=== PATIENT | female | born 1990 | race Caucasian/White ===

== ENCOUNTER 2023-09-30 07:34 | Inpatient (IN) ==
--- OUTSIDE RECORDS SUMMARY | 2023-09-30 07:51 | External Medical Summary | Summary of Care ---
Author Name Unknown Organization [facility] Address [address] [place] [address] Phone [phone] Care Team Providers Care Supervisor Color Paste Mixing Name Role Phone Faisal Otto MD Primary Care Provider + Reason for Visit * Reason Comments Return Visit Encounter Details Date Type Department Care Team (Late st Contact Info) Description 09/22/2023 8:45 AM EST Office Visit Gynecology/Obstetric [facility] [address] [facility] [place] [address] Divine Leon MD [address] [facility] [place] [phone] 39 weeks gestation of *; Hypothyroidism affecting in third trimester; Encounter for supervision of normal first in third trimester; Anxiety during ; History of respiratory syncytial virus (RSV) vaccination Allergies Active Allergy Reactions Criticality Noted Date Comments Cat Dander Other (Please comment) 11/29/2015 Congestion Dog Dander Other (Please comment) 11/29/2015 congestion Ragweed 11/29/2015 grass congestion documented as of this encounter (statuses as of 09/22/2023) Medications Medication Sig Dispensed Refills Start Date End Date Status 28-0.8 MG Oral Tablet Take by mouth. 0 Active Fluticasone Propionate 50 MCG/ACT Nasal Suspension (Flonase) ADMINISTER 2 SPRAYS INTO NOSTRIL IN THE MORNING. NEED ANNUAL OV FOR FURTHER REFILLS 48 mL 0 10/07/2022 10/07/2023 Active Levothyroxine Sodium 50 MCG Oral Tablet (Levoxyl) TAKE 1 TABLET BY MOUTH DAILY AT LEAST 30 MINUTES PRIOR TO FIRST MEAL OF THE DAY OR OTHER MEDICATIONS 90 Tablet 0 07/14/2023 07/13/2024 Active Iron 325 (65 Fe) MG Oral Tablet Take 1 Tablet by mouth once. 0 Active Sertraline HCl 50 MG Oral Tablet (Zoloft) TAKE ONE TABLET BY MOUTH EVERY MORNING 90 Tablet 3 09/22/2023 09/21/2024 Active documented as of this encounter (statuses as of 09/22/2023) Active Problems Problem Noted Date Diagnosed Date History of respiratory syncytial virus (RSV) vac cination 08/26/2023 Overview: Received 08/2023 Supervision of normal first 02/11/2023 Anxiety during 02/11/2023 Overview: zoloft Hypothyroidism affecting 02/11/2023 Overview: TSH Results: Lab Results Component Value Date/Time TSH - [facility] 1.22 07/01/2023 02:28 PM TSH - [facility] 1.39 06/10/2023 01:48 PM TSH - [facility] 1.68 05/13/2023 01:40 PM TSH - [facility] 1.48 09/28/2019 01:24 PM TSH - [facility] 1.44 04/14/2018 04:47 PM TSH - [facility] 1.75 12/02/2016 08:08 AM GAUTAM (generalized anxiety disorder) 12/25/2016 Hypothyroidism 12/04/2015 Screening for lipid disorders 11/29/2015 Allergic rhinitis Overview: shots in past Estimated Date of Delivery Comme nts Yes 09/23/2023 Based on Ultraso und documented as of this encounter (statuses as of 09/22/2023) Resolved Problems Problem Noted Date Diagnosed Date Resolved Date Less than 8 weeks gestation of 01/28/2023 02/11/2023 Oral contraceptive use 10/19/201902/11 PTSD (post-traumatic stress disorder) 12/25/2016 04/14/2018 Moderate single current epis ode of major depressive disorder 12/25/2016 04/14/2018 Oligomenorrhea 12/04/2015 02/11/2023 Elevated prolactin level 12/04/2015 History of varicella 11/29/2015 019 documented as of this encounter (statuses as of 09/22/2023) Immunizations Name Administration Dates Next Due COVID-19 mRNA, LNP-s, No Pre serve, 2-Dose Series ([employer]) 06/12/2021,09/15/2020,08/25/2020 H1N1 2009 Influenza, Intranasal 07/03/2009 HPV Vaccine, 4-Valent 04/25/2009,01/18/2009,11/05 Hepatitis B, 0-19 yrs 12/25/1994,05/30/1994,04/08 MMR - Measles/Mumps/Rubella Vaccine 04/14/1998,1 1990 Meningococcal Conjugate Vaccine 01/13/2006 PPD 05/21/2015,10/06/2012,09/29/2012 Seasonal Influenza Virus Vac cine, Unspecified Formulation 06/16/2019 Seasonal Influenza, PF, 6 M & above, IM , (FluLaval or Fluzone) 06/01/2023,06/27/2022 Seasonal Influenza, Quadriva lent, No Preserve, IM 06/05/2021,05/31/2020,06/16/2019,06/24 Seasonal Influenza, Split, I IV3, With Preserve, Inj 06/12/2017,06/18/2016,04/07/2015,04/26 TDAP (age 10 and older)(Boostrix) 07/01/2023, Varicella Vaccine (Chicken Pox) 01/09/1994 documented as of this encounter Social History Tobacco Use Types Packs/Day Years Used Date Smoking Tobacco: Never Smokeless Tobacco: Never Alcohol Use Standard Drinks/Week Comments Not Currently 0 (1 standard drink = 0.6 oz pur e alcohol) no binge AUDIT-C Answer Date Recorded Frequency of Alcohol Consumption Monthly or less 09/28/2019 Average Number of Drinks Not on file 020 Frequency of Binge Drinking Not on file 09/08 PHQ-2 Answer Date Recorded PHQ-2 Score 0 09/28/2019 Hunger Vital Sign Answer Date Recorded Within the past 12 months, y ou worried that your food would run out before you got the money to buy more. Never true 01/28/20 Within the past 12 months, t he food you bought just didn't last and you didn't have money to get more. Never true 01/27/2023 [place] Depression Scale Answer Date Recorded [place] Depression Scale Total 0 08/12/2023 The thought of harming myself has occurred to me . Never 08/12/2023 Estimated Date of Delivery Comme nts Yes 09/23/2023 Based on Ultraso und Sex and Gender Information Value Date Recorded Sex Assigned at Female 01/27/2023 1:33 PM EDT Gender Identity Female 01/27/2023 1:33 PM EDT Sexual Orientation Straight 01/27/2023 1: 33 PM EDT Job Start Date Occupation Industry Not on file Not on file Not on file documented as of this encounter Last Filed Vital Signs Vital Sign Reading Time Taken Comments Blood Pressure 118/68 09/22/2023 8:39 AM EST Pulse - - Temperature - - Respiratory Rate - - Oxygen Saturation - - Inhaled Oxygen Concentration - - Weight 70.3 kg (155 lb) 09/22/2023 8:39 AM EST Height 162.6 cm (5' 4") 09/22/2023 8:39 AM EST Body Mass Index 26.61 09/22/2023 8:39 AM EST documented in this encounter Progress Notes * Divine Leon MD - 09/22/2023 8:45 AM EST Patient is 33 year old at 39 6/7 weeks who presents for DORA visit Denies leaking of fluid, or vaginal bleeding. Noted good movement. Ctx spaced out. Was on LD Thursday Denies headache, blurry vision, RUQ or epigastric pain. Problem list reviewed LMP 12/12/2022 (Approximate) FH: 39 FHT: 151 Cx: 2-3/50/-3, membrane sweep done with patient consent Mule Packer Documentation Patient offered tankage grinder and accepted. Name of tankage grinder: Erasmo Jha LPN Plan: Labor and preeclampsia warnings reviewed RTC 1 weeks V Carolyn NORMAN PhD * Michaelle Park LPN - 09/22/2023 8:40 AM EST 39w6d Was at L+D Monday 09/18 for consistent ctx, was dehydrated and sent home. documented in this encounter Plan of Treatment Health Maintenance Due Date Last Done Comments Depression Screening 09/28/2020 09/28/2019 COVID-19 Vaccine ( season) 2023 06/12/2021, 09/15/2020, 08/25/2020 TSH 08/12/2024 08/12/2023, 06/08, 06/10/2023, Additional history exists Pap Smear 02/11/2026 02/11/2023, 10/08, 10/19/2019, Additional history exists Cervical Cancer Screening 02/12/2028 HPV/Co-Test 02/12/2028 02/11/2023 DTaP,Tdap,and Td Vaccines (3 - Td or Tdap) 07/01/2033 07/01/2023, 04/02/2014 Hepatitis B Completed 12/25/1994, 05/09, 04/29/1994 MENINGOCOCCAL (MENACTRA/MENVEO) Aged Out 01/13/2006 No longer eligible based on patient's age to complete this topic GARDASIL-HPV IMMUNIZATION SERIES Completed 04/25/2009, 01/18/2009, 11/16/2008 Influenza Vaccine (FLU shot) Completed , 06/27/2022, 06/05/2021, Additional history exists Pneumococcal Vaccine: Pediatrics (0 to 5 Years) and At-Risk Patients (6 to 64 Years) Aged Out No longer eligible based on patient's age to complete this topic documented as of this encounter Medical Devices Not on filedocumented as of this encounter Visit Diagnoses Diagnosis 39 weeks gestation of - Primary state, incidental Hypothyroidism affecting in third trimester Encounter for supervision of normal first in third trimester Supervision of normal first Anxiety during History of respiratory syncytial virus (RSV) vaccination documented in this encounter Care Teams Supervisor Color Paste Mixing Relationship Specialty Start Date End Date Faisal Otto MD [address] [place] [address] PCP - General Family Medicine 11/02/18 documented as of this encounter
--- OUTSIDE RECORDS SUMMARY | 2023-09-30 07:51 | External Medical Summary | Summary of Care ---
Author Name Unknown Organization [facility] Address [address] [place] [address] Phone [phone] Care Team Providers Care District Gauger Name Role Phone Faisal Otto MD Primary Care Provider + Reason for Visit * Reason Onset Date Comments Appointment 09/25/2023 Encounter Details Date Type Department Care Team (Late st Contact Info) Description 09/25/2023 Telephone Gynecology/Obstetrics [facility] [address] [facility] [place] [address] ADDRESS AVAILABLE Appointment Allergies Active Allergy Reactions Criticality Noted Date Comments Cat Dander Other (Please comment) 11/29/2015 Congestion Dog Dander Other (Please comment) 11/29/2015 congestion Ragweed 11/29/2015 grass congestion documented as of this encounter (statuses as of 09/25/2023) Medications Medication Sig Dispensed Refills Start Date [...] as of this encounter (statuses as of 09/25/2023) Active Problems Problem Noted Date Diagnosed Date [...] as of this encounter (statuses as of 09/25/2023) Resolved Problems Problem Noted Date Diagnosed Date Resolved Date Less than 8 weeks gestation of 01/28/2023 02/11/2023 Oral contraceptive use 10/19/201902/11 PTSD (post-traumatic stress disorder) 12/25/2016 04/14/2018 Moderate single current epis ode of major depressive disorder 12/25/2016 04/14/2018 Oligomenorrhea 12/04/2015 02/11/2023 Elevated prolactin level 12/04/2015 History of varicella 11/29/2015 019 documented as of this encounter (statuses as of 09/25/2023) Immunizations Name Administration Dates Next Due COVID-19 mRNA, LNP-s, No Pre serve, 2-Dose Series ([employer]) 06/12/2021,09/15/2020,08/25/2020 H1N1 2009 Influenza, Intranasal 07/03/2009 HPV Vaccine, 4-Valent 04/25/2009,01/18/2009,11/05 Hepatitis B, 0-19 yrs 12/25/1994,05/30/1994, MMR - Measles/Mumps/Rubella Vaccine 04/14/1998,1 1990 Meningococcal [...] money to buy more. Never true 01/28/20 23 Within the past 12 months, t he food you bought just didn't last and you didn't have money to get more. Never true 01/27/2023 [place] Depression Scale Answer Date Recorded [place] Depression Scale Total 0 08/12/2023 The thought [...] on file documented as of this encounter Plan of Treatment Upcoming Encounters Date Type Department Care Team (Late st Contact Info) Description 09/28/2023 2:30 PM EST Office Visit Gynecology/Obstetrics [facility] [address] [place] [address] Candie Santana PA-C [address] [place] [address] Health Maintenance Due Date Last Done Comments [...] Not on filedocumented as of this encounter Care Teams District Gauger Relationship Specialty Start Date End Date Faisal Otto MD [address] [place] [address] PCP - General Family Medicine 11/02/18 documented as of this encounter
--- OUTSIDE RECORDS SUMMARY | 2023-09-30 07:51 | External Medical Summary | Summary of Care ---
Author Name Unknown Organization [facility] Address [address] [place] [address] Phone [phone] Care Team Providers Care Interventional Radiologist Name Role Phone Faisal Otto MD Primary Care Provider + Reason for Visit * Reason Comments Medication Refill Encounter Details Date Type Department Care Team (Late st Contact Info) Description 09/21/[address] [facility] [address] [facility] [place] [address] Monika Fraser CRNP [address] [place] [address] Allergies Active Allergy Reactions Criticality Noted Date [...] MORNING 90 Tablet 3 09/22/2023 09/21/2024 Active Sertraline HCl 50 MG Oral Tablet (Zoloft) TAKE ONE TABLET BY MOUTH EVERY MORNING 90 Tablet 3 10/08/2022 09/21/2023 Discontinue d(Refill) documented as of this encounter (statuses as [...] mRNA, LNP-s, No Pre serve, 2-Dose Series ([employer]) 06/12/2021,09/15/2020,08/25/2020 H1N1 2009 Influenza, Intranasal 07/03/2009 HPV [...] money to get more. Never true 01/27/2023 [place] Depression Scale Answer Date Recorded [place] Depression Scale Total 0 08/12/2023 The thought [...] on file documented as of this encounter Miscellaneous Notes * Telephone Encounter - Monika Fraser CRNP - 09/22/2023 7:52 AM EST Signed Prescriptions: Disp Refills Sertraline HCl 50 MG Oral Tablet (Zoloft) 90 Tab*3 Sig: TAKE ONE TABLET BY MOUTH EVERY MORNING Authorizing Provider: MONIKA FRASER * Telephone Encounter - Carol Corley RP - 09/22/2023 7:03 AM ESTPending Prescriptions: Disp Refills Sertraline HCl 50 MG Oral Tablet (Zoloft) 90 Tab*3 Sig: TAKE ONE TABLET BY MOUTH EVERY MORNING * Telephone Encounter - Carol Corley [facility] - 09/22/2023 7:01 AM EST Unable to authorize medication refills for pended medication(s) at this time. Part of the protocol criteria used for refill authorization was not satisfied. Patient is currently . Please approve if appropriate. Thank You, Carol Corley [facility] Clinical Pharmacist [facility] Services ([facility]) (formerly Telepharmacy) [phone] 09/22/2023, 7:02 AM documented in this encounter Plan of Treatment Upcoming Encounters Date Type Department Care Team (Late st Contact Info) Description 09/22/2023 8:45 AM EST Office Visit Gynecology/Obstetrics [facility] [address] [facility] [place] [address] Divine Leon MD [address] [place] [address] [place] [address] Health Maintenance Due Date Last Done Comments [...] filedocumented as of this encounter Care Teams Interventional Radiologist Relationship Specialty Start Date End Date Faisal Otto MD [address] [facility] [place] [address] PCP - General Family Medicine 11/02/18 documented as of this encounter
--- OUTSIDE RECORDS SUMMARY | 2023-09-30 07:51 | External Medical Summary | Summary of Care ---
Author Name Unknown Organization [facility] Address [address] [place] [address] Phone [phone] Care Team Providers Care Rubber Factory Worker Name Role Phone Faisal Otto MD Primary Care Provider + Reason for Visit * Reason Comments Return Visit Encounter Details Date Type Department Care Team (Late st Contact Info) Description 09/28/2023 2:30 PM EST Office Visit Gynecology/Obstetric s [facility] [address] [place] [address] Candie Santana PA-C [address] [place] [address] Encounter for supervision of normal first in third trimester*; Anxiety during ; Hypothyroidism affecting in third trimester; History of respiratory syncytial virus (RSV) vaccination Allergies Active Allergy Reactions Criticality Noted Date Comments Cat Dander Other (Please comment) 11/29/2015 Congestion Dog Dander Other (Please comment) 11/29/2015 congestion Ragweed 11/29/2015 grass congestion documented as of this encounter (statuses as of 09/28/2023) Medications Medication Sig Dispensed Refills Start Date [...] as of this encounter (statuses as of 09/28/2023) Active Problems Problem Noted Date Diagnosed Date [...] as of this encounter (statuses as of 09/28/2023) Resolved Problems Problem Noted Date Diagnosed Date Resolved Date Less than 8 weeks gestation of 01/28/2023 02/11/2023 Oral contraceptive use 10/19/201902/11 PTSD (post-traumatic stress disorder) 12/25/2016 04/14/2018 Moderate single current epis ode of major depressive disorder 12/25/2016 04/14/2018 Oligomenorrhea 12/04/2015 02/11/2023 Elevated prolactin level 12/04/2015 History of varicella 11/29/2015 019 documented as of this encounter (statuses as of 09/28/2023) Immunizations Name Administration Dates Next Due COVID-19 mRNA, LNP-s, No Pre serve, 2-Dose Series ([employer]) 06/12/2021,09/15/2020,08/25/2020 H1N1 2009 Influenza, Intranasal 07/03/2009 HPV [...] the money to buy more. Never true 05/23/20 23 Within the past 12 months, t he food you bought just didn't last and you didn't have money to get more. Never true 01/27/2023 [place] Depression Scale Answer Date Recorded [place] Depression Scale Total 0 08/12/2023 The thought [...] Sign Reading Time Taken Comments Blood Pressure 114/72 09/28/2023 2:04 PM EST Pulse - - Temperature - - Respiratory Rate - - Oxygen Saturation - - Inhaled Oxygen Concentration - - Weight 70.8 kg (156 lb) 09/28/2023 2:04 PM EST Height 162.6 cm (5' 4") 09/28/2023 2:04 PM EST Body Mass Index 26.78 09/28/2023 2:04 PM EST documented in this encounter Progress Notes * Candie Santana PA-C - 09/28/2023 2:09 PM EST 40w5d Understandably disappointed that now past due date. Reports contractions at closest 15 minutes apart. Inconsistent. Had some more regular contractions last Thursday but then stopped. Denies bleeding, LOF. Pos FM. Desires cervical check. IOL scheduled 09/30/2023. Building Service Worker Documentation Provider requested low vision therapist. Name of low vision therapist: STUART Braswell Exam: 2-350/-3 RTC for visit Candie Santana PA-C * Michaelle Park LPN - 09/28/2023 2:06 PM EST 40w5d Would like cervical check. documented in this encounter Plan of Treatment [...] as of this encounter Visit Diagnoses Diagnosis Encounter for supervision of normal first in third trimester- Primary Supervision of normal first Anxiety during Hypothyroidism affecting in third trimester History of respiratory syncytial virus (RSV) vaccination documented in this encounter Care Teams Rubber Factory Worker Relationship Specialty Start Date End Date Faisal Otto MD [address] [place] [address] PCP - General Family Medicine 11/02/18 documented as of this encounter
--- OUTSIDE RECORDS SUMMARY | 2023-09-30 07:51 | External Medical Summary | Summary of Care ---
Author Name Unknown Organization [facility] Address [address] [place] [address] Phone [phone] Care Team Providers Care Rn International Name Role Phone Faisal Otto MD Primary Care Provider + Reason for Visit * Reason Comments Return Visit Encounter Details Date Type Department Care Team (Late st Contact Info) Description 09/22/2023 8:45 AM EST Office Visit Gynecology/Obstetric [facility] 132 [facility] [place] [address] Divine Leon MD [address] [facility] [place] [phone] 39 weeks gestation of *; Hypothyroidism affecting [...] mRNA, LNP-s, No Pre serve, 2-Dose Series (L[employer]ro) 06/12/2021,09/15/2020,08/25/2020 H1N1 2009 Influenza, Intranasal 07/03/2009 HPV [...] money to get more. Never true 01/27/2023 [place] Depression Scale Answer Date Recorded [place] Depression Scale Total 0 08/12/2023 The thought [...] 2-3/50/-3, membrane sweep done with patient consent Data Consultant Documentation Patient offered artificial inseminator and accepted. Name of artificial inseminator: Erasmo Jha LPN Plan: Labor and preeclampsia [...] vaccination documented in this encounter Care Teams Rn International Relationship Specialty Start Date End Date Faisal Otto MD [address] [place] [address] PCP - General Family Medicine 11/02/18 documented as of this encounter
--- OUTSIDE RECORDS SUMMARY | 2023-09-30 07:51 | External Medical Summary | Summary of Care ---
Author Name Unknown Organization [facility] Address [address] [place] [address] Phone [phone] Care Team Providers Care Migratory Farm Hand Name Role Phone Faisal Otto MD Primary Care Provider + Reason for Visit * Reason Comments Return Visit Encounter Details Date Type Department Care Team (Late st Contact Info) Description 09/18/2023 1:00 PM EST Office Visit Gynecology/Obstetric s [facility] [address] [place] [address] Candie Santana PA-C [address] [place] [address] Uterine contractions*; Encounter for supervision of normal first in third trimester; Anxiety during ; History of respiratory syncytial virus (RSV) vaccination Allergies Active Allergy Reactions Criticality Noted Date Comments Cat Dander Other (Please comment) 11/29/2015 Congestion Dog Dander Other (Please comment) 11/29/2015 congestion Ragweed 11/29/2015 grass congestion documented as of this encounter (statuses as of 09/18/2023) Medications Medication Sig Dispensed Refills Start Date End Date Status 28-0.8 MG Oral Tablet Take by mouth. 0 Active Sertraline HCl 50 MG Oral Tablet (Zoloft) TAKE ONE TABLET BY MOUTH EVERY MORNING 90 Tablet 3 10/08/2022 10/08/2023 Active Fluticasone Propionate 50 MCG/ACT Nasal Suspension [...] 1 Tablet by mouth once. 0 Active documented as of this encounter (statuses as of 09/18/2023) Active Problems Problem Noted Date Diagnosed Date [...] as of this encounter (statuses as of 09/18/2023) Resolved Problems Problem Noted Date Diagnosed Date Resolved Date Less than 8 weeks gestation of 01/28/2023 02/11/2023 Oral contraceptive use 10/19/201902/11 PTSD (post-traumatic stress disorder) 12/25/2016 04/14/2018 Moderate single current epis ode of major depressive disorder 12/25/2016 04/14/2018 Oligomenorrhea 12/04/2015 02/11/2023 Elevated prolactin level 12/04/2015 History of varicella 11/29/2015 019 documented as of this encounter (statuses as of 09/18/2023) Immunizations Name Administration Dates Next Due COVID-19 mRNA, LNP-s, No Pre serve, 2-Dose Series ([employer]) 06/12/2021,09/15/2020,08/25/2020 H1N1 2009 Influenza, Intranasal 07/03/2009 HPV [...] money to get more. Never true 01/27/2023 [place] Depression Scale Answer Date Recorded [place] Depression Scale Total 0 08/12/2023 The thought [...] Sign Reading Time Taken Comments Blood Pressure 126/72 09/18/2023 12:10 PM EST Pulse - - Temperature - - Respiratory Rate - - Oxygen Saturation - - Inhaled Oxygen Concentration - - Weight - - Height 162.6 cm (5' 4") 09/18/2023 12:10 PM EST Body Mass Index - - documented in this encounter Progress Notes * Maria Del Rosario Mckeon CRNP - 09/18/2023 12:58 PM EST ASSESSMENT assessment with Non-stress Test completed on 09/18/2023 at 39.2weeks gestation for indication of contractions heart baseline: 130 bpm Variability: Moderate Decelerations: absent Accelerations: present Contractions: Present every 2-3 minutes NST start time: 1152 NST stop time: 1217 NST strip reviewed, interpreted, and approved by OB provider, NAVI Soares . NST strip stored in clinic storage file L&D and doctor business division chair aware pt will be heading to L&D- cervical changes and regular contractions. NAVI Soares * Michaelle Park LPN - 09/18/2023 12:37 PM EST 39w2d Patient presents to office feeling uncomfortable, low back pain. documented in this encounter Plan of Treatment Upcoming Encounters Date Type Department Care Team (Late st Contact Info) Description 09/22/2023 8:45 AM EST Office Visit Gynecology/Obstetrics [facility] 132 [facility] [place] [address] Divine Leon MD [address] [place] [address] [place] [address] Health Maintenance Due Date [...] as of this encounter Visit Diagnoses Diagnosis Uterine contractions- Primary Encounter for supervision of normal first in third trimester Supervision of normal first Anxiety during History of respiratory syncytial virus (RSV) vaccination documented in this encounter Care Teams Migratory Farm Hand Relationship Specialty Start Date End Date Faisal Otto MD [address] [place] [address] PCP - General Family Medicine 11/02/18 documented as of this encounter
--- OUTSIDE RECORDS SUMMARY | 2023-09-30 07:51 | External Medical Summary | Summary of Care ---
Author Name Unknown Organization [facility] Address [address] [place] [address] Phone [phone] Care Team Providers Care Television Agent Name Role Phone Faisal Otto MD Primary Care Provider + Encounter Details Date Type Department Care Team (Late st Contact Info) Description 09/25/2023 Telephone [facility] [address] [place] [address] Charly Herrera MD [address] [place] [id number] Allergies Active Allergy Reactions Criticality Noted Date [...] mRNA, LNP-s, No Pre serve, 2-Dose Series (iQiyi) 06/12/2021,09/15/2020,08/25/2020 H1N1 2009 Influenza, Intranasal 07/03/2009 HPV [...] money to get more. Never true 01/27/2023 [place] Depression Scale Answer Date Recorded [place] Depression Scale Total 0 08/12/2023 The thought [...] encounter Miscellaneous Notes * Telephone Encounter - Reina Flynn MED ASSIST - 09/25/2023 10:55 AM EST Appt scheduled, MyG sent * Telephone Encounter - Sherly Voss RN - 09/25/2023 9:35 AM EST Patient calling in with questions regarding contractions. She was having contractions every 15 m ins Thursday , no other symptoms of labor and then the contractions stopped. Asking If this is concerning. Patient advised that this is not concerning as long as she is not having other signs of labor.She denies leaking, bleeding, DFM or pain. Baby is moving normally. Pt scheduled for IOL next Thursday. Pt should be seen in office Thursday or Thursday per Dr. Leon's OV note from 09/22. Please schedule patient return visit. Pt okay with My G message with appt time. Pt aware to call back with any new symptoms or questions. documented in this encounter Plan of Treatment Upcoming Encounters Date Type Department Care Team (Late st Contact Info) Description 09/28/2023 2:30 PM EST Office Visit Gynecology/Obstetrics [facility] [address] [place] [address] Candie Santana PA-C [address] [place] [address] Health Maintenance Due Date Last Done Comments [...] filedocumented as of this encounter Care Teams Television Agent Relationship Specialty Start Date End Date Faisal Otto MD [address] [place] [id number] PCP - General Family Medicine 11/02/18 documented as of this encounter
[2023-09-30] MEDS ORDERED: DINOPROSTONE 10 MG INSERT PV ONE (08:15)
[2023-09-30] MEDS ORDERED: LIDOCAINE 1% LOCAL 20 ML VIAL INFIL PRN (08:15)
[2023-09-30] MEDS ORDERED: OXYTOCIN 30 UNITS/NSS 30 UNITS/500 ML BAG IV PRN ×2 (08:15→21:09)
[2023-09-30 09:05] LABS: Hematocrit (blood only) 34.1 % (37.0-47.0); Hemoglobin 11.7 g/dl (12.0-16.0); Mean Corpuscular Hemoglobin 32.3 pg (25.0-34.0); Mean Corpuscular Hgb Conc 34.3 g/dL (32.0-36.0); Mean Corpuscular Volume 94.2 fL (80.0-100.0); Mean Platelet Volume 9.5 fL (9.4-12.4); Platelet Count 219 K/uL (130-400); RDW Coefficient of Variation 13.2 % (11.5-14.5); RDW Standard Deviation 45.3 fL (36.4-46.3); Red Blood Count 3.62 M/uL (4.20-5.40); White Blood Count 10.65 K/ul (4.8-10.8)
--- NOTE | 2023-09-30 09:08 | History & Physical Report ---
Date of Service September 30, 2023 Assessment & Plan (1) Post-dates : Plan: 33 yo at 41 wks, IOL for postdates VSS Afebrile, FHR reassuring, GBS neg Cervidil is placed Continue to monitor closey Admission and Anticipated Discharge Date Admission Date: September 30, 2023 History of Present Illness Primary Care Provider: Faisal Otto MD Patient is a 33 yo at 41 wks, scheduled IOL for postdates, she has membraned swipped about hours and has not gone into labor No ctxs/ LOF/VB +FM Her has been uncomplicated GBS neg Hypothyroidism, on Levothroxine Allergies Allergy/AdvReac Type Severity Reaction Status Date / Time cat dander Allergy Congested Verified 09/30/23 07:55 dog dander Allergy Congested Verified 09/30/23 07:55 grass pollen Allergy Congested Verified 09/30/23 07:55 Home Medications Medication Instructions Recorded Confirmed Type ferrous sulfate 325 mg (65 mg 325 mg PO DAILY 09/18/23 09/30/23 History iron) tablet levothyroxine 50 mcg tablet 50 mcg PO DAILY 09/18/23 09/30/23 History vits no.130-ferrous fum 1 tab PO DAILY 09/18/23 09/30/23 History 27 mg iron-folic acid 800 mcg tablet ( Vitamin) sertraline 50 mg tablet 50 mg PO DAILY 09/18/23 09/30/23 History Patient History Medical History (Updated 09/30/23 @ 09:07 by Charly Lynch MD) Generalized anxiety disorder Hypothyroid Surgical History History of wisdom tooth extraction Social History Smoking Status: Never smoker Hx Alcohol Use: No Hx Substance Use: No Preferred Language: Japanese Communication Ability: Effective Parts Assembler Required: No Beliefs That Will Affect Care: None marital status: marital status details: Pat Clause Current Living Situation: Spouse Current Living Situation Comment: lives with current occupational status: employed current occupation: PA[employer] Feels Safe at Home: Yes Safety Concerns: Feels Safe At This Time Assistive Devices: None COMPUTER SCIENCE INTERN History No h/o ST's Review of Systems as per Subjective / HPI Physical Exam Constitutional: WD/WN, vitals as above well developed, well nourished and comfortable Gastrointestinal (Abdomen): normal bowel sounds, soft, nontender, no hepatosplenomegaly (gravid, Cel[place] 7 lb) Genitourinary: no vaginal lesions, no adnexal mass normal external appearance Manual OB Exam: + cervical dilation 3 cm, + cervical effacement 50% and + station -2 OB Exam Monitor Tracing: + external uterine monitor used and + category I Results & Data Vital Signs (Past 12 Hours) Vital Signs Temp Pulse Resp BP 09/30/23 07:53 36.8 C 18 09/30/23 07:49 68 119/71 (1) Post-dates Post-term type: 40-42 weeks gestation Qualified Code(s): O48.0 - Post-term
[2023-09-30] MEDS ORDERED: BUTORPHANOL TARTRATE 1 MG/ML VIAL IV PRN (12:07)
--- NOTE | 2023-09-30 14:17 | Obstetrical Progress Note ---
Date of Service September 30, 2023 Assessment & Plan Admission and Anticipated Discharge Date Admission Date: September 30, 2023 Subjective Patient has been walking in hallways and feels well Feels mild irregular contractions and they are not painful No LOF/VB +FM FHR categ I Continue to monitor Results & Data Vital Signs (Past 12 Hours) Vital Signs Temp Pulse Resp BP 09/30/23 12:03 58 L 111/68 09/30/23 12:01 18 09/30/23 12:01 36.8 C 18 09/30/23 07:53 36.8 C 18 09/30/23 07:49 68 119/71
[2023-09-30] MEDS ORDERED: SERTRALINE HCL 50 MG TABLET PO ONE (20:09)
--- NOTE | 2023-09-30 21:11 | Obstetrical Progress Note ---
Date of Service September 30, 2023 Assessment & Plan Admission and Anticipated Discharge Date Admission Date: September 30, 2023 Subjective Patient is reevaluated She feels contractions spaced out but more stronger, pain is 4/10 VE: Cervidil is removed Cervix 4/ 60%/ -2, AROM'ed, light meconium FHR categ I [place] ctxs q 3-10 min Continue yo monitor closely Will start Oxytocin per protocol Results & Data Vital Signs (Past 12 Hours) Vital Signs Temp Pulse Resp BP 09/30/23 19:02 18 09/30/23 19:02 36.6 C 18 09/30/23 19:01 65 116/71 09/30/23 14:41 65 113/62 09/30/23 12:03 58 L 111/68 09/30/23 12:01 18 09/30/23 12:01 36.8 C 18
[2023-09-30] MEDS: LACTATED RINGER'S 1,000 ML IV PRN ×2 (21:14→22:15)
[2023-09-30] MEDS ORDERED: SODIUM CHLORIDE 0.9% PF INJ 10 ML VIAL ONE (21:27)
[2023-09-30] MEDS ORDERED: LIDOCAINE 2%/EPINEPHRINE 1:200,000 20 ML PF ONE (21:27)
[2023-09-30] MEDS ORDERED: BUPIVACAINE 0.25% PF 30 ML VIAL ONE (21:27)
[2023-09-30] MEDS ORDERED: ePHEDrine sulfate 50 MG/ML AMP ONE (21:27)
[2023-09-30] MEDS ORDERED: fentANYL 2 MCG/ML BUPIVacaine 0.125%-NSS 100ML BAG ONE (21:27)
[2023-09-30] MEDS ORDERED: fentaNYL citrate PF 100 MCG/2 ML VIAL ONE (21:27)
[2023-09-30] MEDS ORDERED: BUPIVACAINE 0.25% PF 30 ML VIAL EPI STA (22:16)
[2023-09-30] MEDS ORDERED: SODIUM CHLORIDE 0.9% PF INJ 10 ML VIAL EPI STA (22:16)
[2023-09-30] MEDS ORDERED: fentANYL 2 MCG/ML BUPIVacaine 0.125%-NSS 100ML BAG EPI PRN (22:16)
[2023-09-30] MEDS ORDERED: diphenhydrAMINE 50 MG/ML VIAL IV PRN (22:16)
[2023-09-30] MEDS ORDERED: NALBUPHINE HCL 5 MG in SYRINGE 0 ML IV PRN (22:16)
[2023-09-30] MEDS ORDERED: LIDOCAINE 2%/EPINEPHRINE 1:200,000 20 ML PF EPI STA (22:16)
[2023-09-30] MEDS ORDERED: fentaNYL citrate PF 100 MCG/2 ML VIAL EPI STA (22:16)
[2023-09-30] MEDS ORDERED: ROPIVACAINE 0.5% PF 5 MG/ML 20 ML VIAL EPI PRN (22:16)
[2023-09-30] MEDS ORDERED: NALOXONE HCL 1 MG in SODIUM CHLORIDE 0.9% 1,000 ML IV PRN (22:16)
[2023-09-30] MEDS ORDERED: fentaNYL citrate PF 100 MCG/2 ML VIAL EPI PRN (22:16)
[2023-09-30] MEDS ORDERED: ONDANSETRON INJ 2 MG/ML 2 ML VIAL IV PRN (22:16)
[2023-09-30] MEDS ORDERED: BUPIVACAINE 0.25% PF 30 ML VIAL EPI PRN (22:16)
[2023-09-30] MEDS ORDERED: SODIUM CHLORIDE 0.9% PF INJ 10 ML VIAL EPI PRN (22:16)
[2023-09-30] MEDS ORDERED: ePHEDrine sulfate 50 MG/ML AMP IV PRN (22:16)
[2023-09-30] MEDS ORDERED: LIDOCAINE 2% MPF LOCAL 5 ML VIAL EPI PRN (22:16)
[2023-09-30] MEDS ORDERED: NALOXONE HCL 0.4 MG/1 ML VIAL/CARP IV PRN (22:16)
--- NOTE | 2023-09-30 22:17 | Anesthesiology Consultation ---
Date of Service September 30, 2023 Assessment & Plan (1) Encounter for pre-operative examination: Chart Review Chart Review: Patient NOT seen in Pre Admission Testing and Acceptable Risk for Labor Epidural Consults Requested none History Height/Weight Height: 5 ft 4 in Weight: 70.76 kg Allergies Allergy/AdvReac Type Severity Reaction Status Date / Time cat dander Allergy Congested Verified 09/30/23 07:55 dog dander Allergy Congested Verified 09/30/23 07:55 grass pollen Allergy Congested Verified 09/30/23 07:55 Medications Home Medications Medication Instructions Recorded Confirmed Last Taken ferrous sulfate 325 mg (65 mg 325 mg PO DAILY 09/18/23 09/30/23 09/29/23 iron) tablet levothyroxine 50 mcg tablet 50 mcg PO DAILY 09/18/23 09/30/23 09/30/23 vits no.130-ferrous fum 1 tab PO DAILY 09/18/23 09/30/23 09/29/23 27 mg iron-folic acid 800 mcg tablet ( Vitamin) sertraline 50 mg tablet 50 mg PO DAILY 09/18/23 09/30/23 09/29/23 Active Medications Generic Name Dose Route Start Last Admin Trade Name Freq PRN Reason Stop Dose Admin Fentanyl/Bupivacaine/Sodium Chlor 100 ml 09/30/23 22:16 09/30/23 22:39 Fentanyl 2 Mcg/Ml Bupivacaine 0.125%-Nss 100ml Bag EPI 10/01/23 22:15 100 ml PRN PRN Administration Pain R/T Labor Protocol Lactated Ringer's 1,000 mls @ 150 mls/hr 09/30/23 08:15 10/01/23 02:05 Lr IV 10/02/23 08:14 Infused .Q6H40M PRN Infusion L&D Protocol Protocol Oxytocin 30 units in 500 mls @ 6 mls/hr 09/30/23 21:09 10/01/23 01:17 Pitocin 30 Units/Nss IV 10/02/23 21:08 0.36 units/hr .Q24H PRN 6 mls/hr Labor Induction/Augmentation Titration Protocol 0.36 UNITS/HR Ondansetron HCl 4 mg 09/30/23 22:16 09/30/23 23:55 Ondansetron Inj 2 Mg/Ml 2 Ml Vial IV 10/01/23 22:15 4 mg Q6H PRN Administration Nausea &/or Vomiting Past Medical History Medical History (Updated 09/30/23 @ 22:17 by Miguel Coto MD) Encounter for pre-operative examination Generalized anxiety disorder Hypothyroid Past Surgical History Surgical History History of wisdom tooth extraction Past Anesthesia History No Hx of Anesthesia Complications and No Family Hx of Anesthesia Complications Social History Smoking Status: Never smoker Hx Alcohol Use: No Hx Substance Use: No substance use type: does not use Physical Exam Vital Signs Last Vital Signs Temp 36.6 C 10/01/23 01:45 Pulse 69 10/01/23 02:18 Resp 18 10/01/23 01:45 BP 113/63 10/01/23 02:05 Pulse Ox 97 10/01/23 02:18 O2 Del Method Room Air 09/30/23 22:16 Testing Laboratory Results 09/30/23 08:34
[2023-10-01] MEDS: LACTATED RINGER'S 1,000 ML IV PRN (02:30)
[2023-10-01] MEDS ORDERED: MINERAL OIL 30 ML UDC ONE (03:57)
[2023-10-01] MEDS ORDERED: MEASLES, MUMPS & RUBELLA VIRUS VACCINE (MMR) VIAL SQ ONE (05:51)
[2023-10-01] MEDS ORDERED: bisacodyL 10 MG SUPP PR PRN (05:51)
[2023-10-01] MEDS ORDERED: OXYTOCIN 30 UNITS/NSS 30 UNITS/500 ML BAG IV PRN (05:51)
[2023-10-01] MEDS ORDERED: BENZOCAINE 20% SPRY 85 APPLN/85 GM CAN EXT PRN (05:51)
[2023-10-01] MEDS ORDERED: oxyCODONE/ACETAMINOPHEN 5mg/325mg TAB PO PRN (05:51)
[2023-10-01] MEDS ORDERED: HYDROCORTISONE ACETATE 25 MG SUPP PR PRN (05:51)
[2023-10-01] MEDS ORDERED: DIPHTHER/TETAN/PERTUS Vaccine (Tdap, Adol/Adult) 0.5mL IM ONE (05:51)
[2023-10-01] MEDS ORDERED: ceFAZolin 2000MG 2,000 MG/15 ML SYR IV STA (05:54)
--- NOTE | 2023-10-01 06:07 | Delivery Summary ---
Vaginal Delivery Summary Date of Service October 01, 2023 Vaginal Delivery Summary Patient was found to be fully dilated and desired to push. She pushed for about 40 min and there was a tight band of hymen with small introitus. It was holding the head. Small incision was made on the right lateral hymenal ring at about 7-8 o'clock position with patient's consent to facilitate the delivery of the head. Then the head was delivered without difficulty and followed by shoulders with minimal traction. The baby was handed off to the mother. The cord was clampedx2 and cut at 1 minute. The placenta was delivered spontaneously as intact and complete. The uterus was explored and found to be empty. The vagina and perineum were checked and found to have 2nd degree vaginal laceration on the right side. There was another 2nd degree laceration of left vaginal wall with sulcus exten gus to the middle of vagina. The vaginal mucosa on both sides were repaired with 2/0 vicryl individually until mid perineum. Then the perineal body muscles were brought together in midline with 2/0 Vicryl followed by skin on subcuticular fashion. The repiar of the left vagin was bleeding, multiple sutures were placed with 2/0 Vicryl and it was still oozing. It was covered with Juan Francisco hemostatic powder and vagina was packed with sterile packing. Bonds catheter was placed to drain the vagina. Those ere to be removed in 12 hours. She was was given 2 grs of IV Cefazolin. EBL was 300 ml. The fundus was firm The baby was a viable female infant, Apgars 8/9, the weight is pending The mother and the baby tolerated the procedure well. No complications happened and I was present during whole procedure.
[2023-10-01] MEDS ORDERED: METHYLERGONOVINE MALEATE 0.2 MG TAB PO SCH (06:15)
[2023-10-01] MEDS ORDERED: Nursing to Pharmacy Communication SCH ×2 (06:45→10:45)
[2023-10-01] MEDS: IBUPROFEN 600 MG TAB PO PRN ×4 (07:30→20:16)
[2023-10-01] MEDS: ACETAMINOPHEN 325 MG TAB PO PRN ×3 (07:31→22:03)
[2023-10-01] MEDS: AMOXICILLIN/CLAVULANATE 875 MG TAB PO SCH ×2 (07:31→17:49)
[2023-10-01] MEDS: LEVOTHYROXINE SODIUM 50 MCG TABLET PO SCH (07:31)
[2023-10-01] MEDS ORDERED: PRENATAL VITAMIN 1 TAB PO SCH (08:00)
[2023-10-01] MEDS: FERROUS SULFATE 325 MG TAB PO SCH (08:40)
[2023-10-01] MEDS: DOCUSATE SODIUM 100 MG CAP PO SCH ×2 (08:40→22:03)
--- NOTE | 2023-10-01 09:27 | Anesthesia Procedure Note ---
Date of Service October 01, 2023 Anesthesia Post Epidural Note Vital Signs Vital Signs: Temp Pulse Resp BP Pulse Ox O2 Del Method 36.5 C 52 L 18 112/66 97 Room Air 10/01/23 07:11 10/01/23 07:55 10/01/23 03:40 10/01/23 07:55 10/01/23 06:58 09/30/23 22:16 Pain Intensity Lower Abdomen: Pain Intensity: 3 Notes Mental Status: alert / awake / arousable Nausea / Vomiting: adequately controlled Pain: adequately controlled Airway Patency, RR, SpO2: stable & adequate BP & HR: stable & adequate Hydration State: stable & adequate Neuraxial Anesthesia: was administered and sensory block is resolving Anesthetic Complications: no major complications apparent and Pt Satisfied with anesthetic care Epidural: Removed without complications and With tip intact
[2023-10-01] MEDS: METHYLERGONOVINE MALEATE 0.2 MG TAB PO SCH ×3 (13:03→22:03)
--- NOTE | 2023-10-01 18:00 | Obstetrical Progress Note ---
Date of Service October 01, 2023 Subjective Ambulation: limited ambulation Voiding: kebede catheter in place Diet Tolerance:: regular diet Feeding Type:: breast feeding Current Pain Level(1-10): 0 doing well Physical Exam Constitutional WD/WN, vitals as above Skin no rashes, warm and dry Neurologic patellar DTR's 2+ bilat, sensation intact Psychiatric A+Ox3, euthymic affect Genitourinary Vaginal packing removed and found to be blood tinged. No active bleeding now. Kebede removed. Results & Data Vital Signs (Past 12 Hours) Vital Signs Temp Pulse Pulse Resp BP BP Pulse Ox 10/01/23 13:05 36.8 C 58 L 16 114/71 10/01/23 08:35 36.4 C L 52 L 16 111/74 10/01/23 07:55 52 L 112/66 10/01/23 07:45 51 L 110/62 10/01/23 07:35 60 106/65 10/01/23 07:25 54 L 111/61 10/01/23 07:15 59 L 113/59 L 10/01/23 07:11 36.5 C 10/01/23 06:58 56 L 97 10/01/23 06:55 55 L 112/56 L 10/01/23 06:53 61 98 10/01/23 06:48 59 L 99 10/01/23 06:45 57 L 128/67 10/01/23 06:43 56 L 99 10/01/23 06:38 60 98 10/01/23 06:35 56 L 127/62 10/01/23 06:33 65 100 10/01/23 06:28 63 98 10/01/23 06:25 58 L 115/64 10/01/23 06:23 62 99 10/01/23 06:18 72 96 10/01/23 06:15 65 118/62 10/01/23 06:13 69 99 10/01/23 06:08 60 99 10/01/23 06:05 57 L 126/63 10/01/23 06:03 60 98 O2 Del Method 10/01/23 13:05 10/01/23 08:35 Room Air 10/01/23 07:55 10/01/23 07:45 10/01/23 07:35 10/01/23 07:25 10/01/23 07:15 10/01/23 07:11 10/01/23 06:58 10/01/23 06:55 10/01/23 06:53 10/01/23 06:48 10/01/23 06:45 10/01/23 06:43 10/01/23 06:38 10/01/23 06:35 10/01/23 06:33 10/01/23 06:28 10/01/23 06:25 10/01/23 06:23 10/01/23 06:18 10/01/23 06:15 10/01/23 06:13 10/01/23 06:08 10/01/23 06:05 10/01/23 06:03 Laboratory Results 09/30/23 08:34 WBC 10.65 RBC 3.62 L Hgb 11.7 L Hct 34.1 L MCV 94.2 MCH 32.3 MCHC 34.3 RDW Std Deviation 45.3 RDW Coeff of Stew 13.2 Plt Count 219 MPV 9.5
[2023-10-01] MEDS: PRENATAL VITAMIN 1 TAB PO SCH (22:03)
[2023-10-01] MEDS: SERTRALINE HCL 50 MG TABLET PO SCH (22:03)
[2023-10-02] MEDS: IBUPROFEN 600 MG TAB PO PRN ×6 (00:16→20:13)
[2023-10-02] MEDS: ACETAMINOPHEN 325 MG TAB PO PRN (04:22)
[2023-10-02] MEDS: LEVOTHYROXINE SODIUM 50 MCG TABLET PO SCH (05:54)
[2023-10-02 06:51] LABS: Hematocrit (blood only) 32.4 % (37.0-47.0); Hemoglobin 10.8 g/dl (12.0-16.0); Mean Corpuscular Hemoglobin 32.5 pg (25.0-34.0); Mean Corpuscular Hgb Conc 33.3 g/dL (32.0-36.0); Mean Corpuscular Volume 97.6 fL (80.0-100.0); Mean Platelet Volume 9.5 fL (9.4-12.4); Platelet Count 193 K/uL (130-400); RDW Coefficient of Variation 13.5 % (11.5-14.5); RDW Standard Deviation 48.4 fL (36.4-46.3); Red Blood Count 3.32 M/uL (4.20-5.40); White Blood Count 15.94 K/ul (4.8-10.8)
[2023-10-02] MEDS: DOCUSATE SODIUM 100 MG CAP PO SCH ×2 (08:31→20:12)
[2023-10-02] MEDS: FERROUS SULFATE 325 MG TAB PO SCH (08:32)
[2023-10-02] MEDS: METHYLERGONOVINE MALEATE 0.2 MG TAB PO SCH ×4 (08:32→20:12)
[2023-10-02] MEDS: AMOXICILLIN/CLAVULANATE 875 MG TAB PO SCH ×2 (08:33→17:37)
--- NOTE | 2023-10-02 09:58 | Obstetrical Progress Note ---
Date of Service October 02, 2023 Assessment & Plan Admission and Anticipated Discharge Date Admission Date: September 30, 2023 Subjective Patient is seen and examined. She feels well, no complaints. Ambulating without dizziness Voiding without difficulty Tolerating regular diet with out N&V Bleeding is minimal No fever/ chills/ CP/ SOB/ N&V/ Leg pain Breast feeding without problems Vital Signs Temp Pulse Resp BP Pulse Ox O2 Del Method 10/02/23 07:20 36.7 C 66 18 107/69 97 Room Air 10/02/23 05:15 36.6 C 60 18 121/76 96 Room Air 10/01/23 22:45 36.7 C 57 L 18 108/69 97 Room Air Lab Results 09/30/23 10/02/23 Range/Units 08:34 06:24 WBC 10.65 15.94 H (4.8-10.8) K/ul RBC 3.62 L 3.32 L (4.20-5.40) M/uL Hgb 11.7 L 10.8 L (12.0-16.0) g/dl Hct 34.1 L 32.4 L (37.0-47.0) % MCV 94.2 97.6 (80.0-100.0) fL MCH 32.3 32.5 (25.0-34.0) pg MCHC 34.3 33.3 (32.0-36.0) g/dL RDW Std Deviation 45.3 48.4 H (36.4-46.3) fL RDW Coeff of Stew 13.2 13.5 (11.5-14.5) % Plt Count 219 193 (130-400) K/uL MPV 9.5 9.5 (9.4-12.4) fL PE: General: Alert, orientedx3, NAD Abd: soft, NT, fundus firm, below Umbilicus Perineum intact, Lochia rubra minimal, no edema, Single digit VE normal Ext; NT, no edema AP: 33 yo s/p , ppd# 1 VSS Afebrile doing well Continue routine care All questions were answered D/C home tomorrow Results & Data Vital Signs (Past 12 Hours) Vital Signs Temp Pulse Resp BP Pulse Ox O2 Del Method 10/02/23 07:20 36.7 C 66 18 107/69 97 Room Air 10/02/23 05:15 36.6 C 60 18 121/76 96 Room Air 10/01/23 22:45 36.7 C 57 L 18 108/69 97 Room Air
[2023-10-02] MEDS ORDERED: bisacodyL 5 MG TABEC PO SCH (20:00)
[2023-10-02] MEDS: SERTRALINE HCL 50 MG TABLET PO SCH (20:12)
[2023-10-02] MEDS: PRENATAL VITAMIN 1 TAB PO SCH (20:13)
[2023-10-03] MEDS: IBUPROFEN 600 MG TAB PO PRN ×2 (00:01→05:45)
[2023-10-03] MEDS: LEVOTHYROXINE SODIUM 50 MCG TABLET PO SCH (05:45)
[2023-10-03 06:30] LABS: Basophils # (auto) 0.07 K/uL (0.00-0.20); Basophils % (auto) 0.6 %; Eosinophils % (auto) 1.6 %; Hematocrit (blood only) 32.4 % (37.0-47.0); Immature Granulocytes # (auto) 0.17 K/uL (0.01-0.20); Immature Granulocytes % (auto) 1.3 %; Lymphocytes # (auto) 3.83 K/uL (1.20-3.40); Lymphocytes % (auto) 30.2 %; Mean Corpuscular Hemoglobin 32.6 pg (25.0-34.0); Mean Corpuscular Volume 96.1 fL (80.0-100.0); Mean Platelet Volume 9.8 fL (9.4-12.4); Monocytes # (auto) 0.71 K/uL (0.11-0.59); Monocytes % (auto) 5.6 %; Neutrophils % (auto) 60.7 %; Platelet Count 237 K/uL (130-400); RDW Coefficient of Variation 13.5 % (11.5-14.5); RDW Standard Deviation 47.3 fL (36.4-46.3); Red Blood Count 3.37 M/uL (4.20-5.40); White Blood Count 12.68 K/ul (4.8-10.8)
[2023-10-03] MEDS: AMOXICILLIN/CLAVULANATE 875 MG TAB PO SCH (08:47)
[2023-10-03] MEDS: DOCUSATE SODIUM 100 MG CAP PO SCH (08:48)
[2023-10-03] MEDS: FERROUS SULFATE 325 MG TAB PO SCH (08:48)
[2023-10-03] MEDS: METHYLERGONOVINE MALEATE 0.2 MG TAB PO SCH ×2 (08:48→13:09)
--- NOTE | 2023-10-03 10:54 | Obstetrical Progress Note ---
Date of Service October 03, 2023 Assessment & Plan Admission and Anticipated Discharge Date Admission Date: September 30, 2023 Subjective Patient is seen and examined. She feels well, no complaints. Ambulating without dizziness Voiding without difficulty Tolerating regular diet with out N&V Bleeding is minimal No fever/ chills/ CP/ SOB/ N&V/ Leg pain Breast and bottle feeding without problems Vital Signs Temp Pulse Resp BP Pulse Ox O2 Del Method 10/03/23 09:49 36.8 C 65 18 129/86 99 10/03/23 08:40 36.8 C 65 18 129/86 99 Room Air Lab Results 09/30/23 10/02/23 10/03/23 Range/Units 08:34 06:24 05:38 WBC 10.65 15.94 H 12.68 H (4.8-10.8) K/ul RBC 3.62 L 3.32 L 3.37 L (4.20-5.40) M/uL Hgb 11.7 L 10.8 L 11.0 L (12.0-16.0) g/dl Hct 34.1 L 32.4 L 32.4 L (37.0-47.0) % MCV 94.2 97.6 96.1 (80.0-100.0) fL MCH 32.3 32.5 32.6 (25.0-34.0) pg MCHC 34.3 33.3 34.0 (32.0-36.0) g/dL RDW Std Deviation 45.3 48.4 H 47.3 H (36.4-46.3) fL RDW Coeff of Stew 13.2 13.5 13.5 (11.5-14.5) % Plt Count 219 193 237 (130-400) K/uL MPV 9.5 9.5 9.8 (9.4-12.4) fL Immature Gran % (Auto) 1.3 % Neut % (Auto) 60.7 % Lymph % (Auto) 30.2 % [place] % (Auto) 5.6 % Eos % (Auto) 1.6 % Baso % (Auto) 0.6 % Neut # (Auto) 7.70 H (1.40-6.50) K/uL Lymph # (Auto) 3.83 H (1.20-3.40) K/uL [place] # (Auto) 0.71 H (0.11-0.59) K/uL Eos # (Auto) 0.20 (0.00-0.50) K/uL Baso # (Auto) 0.07 (0.00-0.20) K/uL Immature Gran # (Auto) 0.17 (0.01-0.20) K/uL PE: General: Alert, orientedx3, NAD Abd: soft, NT, fundus firm, below Umbilicus Perineum intact, Lochia rubra minimal Ext; NT, no edema AP: 33 yo s/p , ppd# 2 VSS Afebrile doing well Continue routine care All questions were answered D/C home , f/u in office Results & Data Vital Signs (Past 12 Hours) Vital Signs Temp Pulse Resp BP Pulse Ox O2 Del Method 10/03/23 09:49 36.8 C 65 18 129/86 99 10/03/23 08:40 36.8 C 65 18 129/86 99 Room Air
== END 2023-10-03 14:25 | disposition home or self-care (01) | DRG 807 ==
LOC: 4S1 07:34 → 4E2 10-01 08:27